=== PATIENT | female | born 1965 | race Native Hawaiian/Other Pacific Islander ===

== ENCOUNTER 2020-04-28 12:11 | Emergency (ER) | payer OTHER ==
[~2020-04-28] VITALS: Ht 157.5 cm; Wt 127.0 kg
[2020-04-28 12:22] VITALS: BP 124/68; TEMP 99.8
== END 2020-04-28 13:06 | disposition home or self-care (01) ==
LOC: ED 12:11
DX: J01.80 Other acute sinusitis (principal); G44.209 Tension-type headache, unspecified, not intractable
CPT/HCPCS: 87502; 87651; 96372; 99283; J0696; J1885

== ENCOUNTER 2020-05-13 16:26 | Emergency (ER) | payer OTHER ==
[~2020-05-13] VITALS: Ht 157.5 cm; Wt 122.0 kg
[2020-05-13 17:47] LABS: PLATELET COUNT 305 K/uL (152-353)
[2020-05-13 17:49] LABS: POTASSIUM 4.1 mmol/L (3.6-5.2)
[2020-05-14 01:50] VITALS: BP 141/54
[2020-05-14 02:13] VITALS: TEMP 98.4
== END 2020-05-14 05:45 | disposition still patient (30) ==
LOC: ED 16:26
PROVIDERS: Hospitalist
DX: F41.8 Other specified anxiety disorders (principal); F32.89 Other specified depressive episodes; R45.851 Suicidal ideations; Z03.818 Encounter for observation for suspected exposure to other biological agents ruled out
CPT/HCPCS: 80053; 80307; 80320; 80329; 81000; 85027; 87635; 93005; 96375; 99285; J1200; J1885; J2270; J2405; U0003